=== PATIENT | male | born 1985 | race Caucasian/White ===

== ENCOUNTER 2021-09-01 03:51 | Emergency (ER) | payer MEDICAID ==
[~2021-09-01] VITALS: Ht 175.3 cm; Wt 95.3 kg
--- NOTE | 2021-09-01 04:10 | NUR ---
PT TAKEN TO BED 3
[2021-09-01 04:14] VITALS: BP 118/73
[2021-09-01] MEDS ORDERED: DEXAMETHASONE 10 MG/ML VIAL IM ONE (04:55)
--- NOTE | 2021-09-01 04:56 | NUR ---
36 Y.O. M C/O throat pain x today. Patient reported, had throat pain, no SOB. DENIES ANY N/V/D, FEVER, CHEST PAIN OR ABD PAIN. A&OX4, SKIN INTACT, VITALS WNL, AND STEADY GAIT. PMHx: DENIES
[2021-09-01] MEDS ORDERED: DEXAMETHASONE 10 MG/ML VIAL ONE (04:58)
[2021-09-01 05:13] VITALS: BP 118/73
--- NOTE | 2021-09-01 05:14 | NUR ---
Patient discharged with v/s stable. Written and verbal after care instructions given and explained. Patient verbalized understanding. Ambulatory with steady gait. All questions addressed prior to discharge. Advised to follow up with PMD.
== END 2021-09-01 05:12 | disposition home or self-care (01) ==
LOC: MED 03:51
DX: T78.3XXA Angioneurotic edema, initial encounter (principal)
CPT/HCPCS: 96372; 99283; J1100